=== PATIENT | male | born 1980 | race Caucasian/White ===

== ENCOUNTER 2017-04-21 11:54 | Emergency (ER) | payer OTHER ==
[2017-04-21] MEDS: ASPIRIN 325 MG TAB PO (13:20)
[2017-04-21 13:32] LABS: ADD MAN DIFF? NO
[2017-04-21 13:33] LABS: BASOPHILS % 0.2 % (0.0-2.0); EOSINOPHILS # 0.1 10^3/ul (0.0-0.5); EOSINOPHILS % 1.1 % (0.0-7.0); HEMATOCRIT 45.8 % (42.0-52.0); HEMOGLOBIN 15.4 g/dl (14.0-18.0); LYMPHOCYTES # 2.1 10^3/ul (0.8-2.9); MEAN CORPUSCULAR HEMOGLOBIN 30.6 pg (29.0-33.0); MEAN CORPUSCULAR HGB CONC 33.6 g/dl (32.0-37.0); MEAN CORPUSCULAR VOLUME 90.9 fl (82.0-101.0); MEAN PLATELET VOLUME 10.5 fl (7.4-10.4); MONOCYTE # 0.8 10^3/ul (0.3-0.9); MONOCYTES % 9.1 % (0.0-11.0); NEUTROPHIL # 6.1 10^3/ul (1.6-7.5); NEUTROPHILS % 66.2 % (39.0-77.0); PLATELET COUNT 223 10^3/UL (140-415); RED BLOOD COUNT 5.04 10^6/ul (4.70-6.10); RED CELL DISTRIBUTION WIDTH 13.2 % (11.5-14.5)
[2017-04-21 13:33] LABS: WHITE BLOOD COUNT 9.2 10^3/ul (4.8-10.8)
[2017-04-21 13:52] LABS: ALANINE AMINOTRANSFERASE 55 IU/L (13-69); ALBUMIN 4.3 g/dl (3.3-4.9); ALKALINE PHOSPHATASE 71 IU/L (42-121); ANION GAP 14 (8-16); ASPARTATE AMINO TRANSFERASE 32 IU/L (15-46); BILIRUBIN,INDIRECT 0.6 mg/dl (0-1.1); BILIRUBIN,TOTAL 0.6 mg/dl (0.2-1.3); BLOOD UREA NITROGEN 13 mg/dl (7-20); CALCIUM 9.3 mg/dl (8.4-10.2); CARBON DIOXIDE 25 mmol/L (21-31); CHLORIDE 107 mmol/L (97-110); CREATINE KINASE 172 IU/L (23-200); CREATININE 0.93 mg/dl (0.61-1.24); GLUCOSE 87 mg/dl (70-220); POTASSIUM 4.2 mmol/L (3.5-5.1); SODIUM 142 mmol/L (135-144); TOTAL PROTEIN 7.6 g/dl (6.1-8.1)
[2017-04-21 14:03] LABS: CK INDEX 0.5
[2017-04-21 14:15] LABS: CK-MB 0.78 ng/ml (0.0-2.4); TROPONIN-I < 0.012 ng/ml (0.00-0.12)
[2017-04-21] MEDS: KETOROLAC 15 MG INJ IV (16:56)
[2017-04-21 16:59] LABS: TROPONIN-I < 0.012 ng/ml (0.00-0.12)
== END 2017-04-21 18:02 | disposition home or self-care (01) ==
LOC: E/R 11:54
DX: R07.2 Precordial pain (principal); R94.31 Abnormal electrocardiogram [ECG] [EKG]; E11.9 Type 2 diabetes mellitus without complications; I10 Essential (primary) hypertension; Z79.82 Long term (current) use of aspirin
CPT/HCPCS: 36415; 71045; 80053; 82550; 82553; 84484; 85025; 93005; 96374; 99285-25